=== PATIENT | female | born 1990 | race Caucasian/White ===

== ENCOUNTER 2018-09-17 22:20 | Inpatient (IN) | payer BC ==
[2018-09-17 22:48] VITALS: BMI 30.2
[2018-09-17] MEDS ORDERED: Ondansetron ODT 8 MG TAB SL PRN (23:08)
[2018-09-17] MEDS ORDERED: Morphine 10 MG/ML VIAL IM PRN (23:08)
[2018-09-18] MEDS ORDERED: Promethazine HCl 25 MG/ML VIAL IM PRN ×2 (00:34→01:46)
[2018-09-18] MEDS ORDERED: Ondansetron PF 4 MG/2 ML Vial IVP PRN ×2 (00:34→01:46)
[2018-09-18] MEDS ORDERED: Acetaminophen 500 MG TAB PO PRN (00:34)
[2018-09-18] MEDS ORDERED: Docusate 100 MG CAP PO PRN (00:34)
[2018-09-18] MEDS ORDERED: Lactated Ringer's 1,000 ML IV SCH (00:45)
[2018-09-18 00:56] LABS: Hemoglobin 13.9 g/dL (12.0-16.0); Mean Corpuscular HGB CONC 35.3 g/dL (32.0-36.0); Mean Corpuscular Hemoglobin 32.3 pg (27.0-31.0); Mean Corpuscular Volume 91.5 fL (78.0-98.0); Mean Platelet Volume 9.8 fL (7.4-10.4); Platelet Count 112 thou/uL (130-400); RBC Distribution Width 12.3 % (11.5-14.5); Red Blood Cell (RBC) Count 4.31 mill/uL (4.20-5.40); White Blood Cell (WBC) Count 15.2 thou/uL (4.8-10.8)
[2018-09-18] MEDS ORDERED: Fentanyl 4 mcg/Bup 0.1% Cadd 100 ML ONE ×4 (01:06→21:36)
[2018-09-18] MEDS: Lactated Ringer's 1,000 ML IV SCH ×3 (01:20→14:50)
[2018-09-18] MEDS: Fentanyl 4 mcg/Bupivacaine 0.1% Cassette 100 ML EPIDURAL SCH ×3 (01:33→21:36)
[2018-09-18 01:35] LABS: HBSAg Index 0.19 S/CO (0-0.99); Hep B Surf Ag Non-Reactive S/CO (NonReactive)
[2018-09-18] MEDS ORDERED: Lactated Ringer's 500 ML IV PRN (01:46)
[2018-09-18] MEDS ORDERED: Naloxone HCl 0.4 mg/ml Vial IVP PRN ×2 (01:46)
[2018-09-18] MEDS ORDERED: diphenhydrAMINE 50 MG/ML VIAL IVP PRN (01:46)
[2018-09-18] MEDS ORDERED: ePHEDrine/0.9% NaCl/PF SYRINGE 50 mg/10 ml SLOW IVP PRN (01:46)
[2018-09-18] MEDS ORDERED: Eucerin (Mineral Oil/Petrolatum,White) 30 gm Jar TOP PRN (01:46)
[2018-09-18] MEDS ORDERED: Acetaminophen 325 MG TAB PO PRN (01:46)
[2018-09-18] MEDS ORDERED: Communication Order-Pharmacy FS SCH (02:00)
[2018-09-18 05:52] LABS: Syphilis Antibody Nonreactive (Nonreactive); Syphilis Antibody Index 0.04 S/CO (<1.00 Non-Reactive)
--- NOTE | 2018-09-18 07:51 | PRG ---
DATE OF SERVICE: 09/17/2018 PRIMARY OB: Carmenza Avila MD CHIEF COMPLAINT: Abdominal pain. HISTORY OF PRESENT ILLNESS: The patient is a 28-year-old G1, P0 female with an intrauterine at 40 weeks and a day, who is presenting to Labor and Delivery with uterine contractions that have picked up from yesterday evening and becoming more intense and difficult to breathe through. The patient denies any leakage of fluid or vaginal bleeding. She denies any fall, headache, chest pain, shortness of breath, nausea, vomiting, diarrhea, or constipation. She denies any skin rashes, hip problems, knee problems, vaginal bleeding, leakage of fluid, or urinary urgency. PAST MEDICAL HISTORY: Negative. PAST SURGICAL HISTORY: Negative. ALLERGIES: NO KNOWN DRUG ALLERGIES. MEDICATIONS: vitamins. SOCIAL HISTORY: Denies drug, alcohol, or tobacco use. LABORATORY DATA: OB labs are unavailable at time of dictation. REVIEW OF SYSTEMS: Per HPI. PHYSICAL EXAMINATION: VITAL SIGNS: Blood pressure 119/75, heart rate of 94, respiratory rate 18, saturating on room air, temperature 98.4. GENERAL: The patient appears to be in some distress with her contractions, difficulty breathing through and concentrating. HEAD: Normocephalic, atraumatic. LUNGS: Clear to auscultation bilaterally. HEART: Regular rate and rhythm. ABDOMEN: Soft and gravid and nontender in between contractions. EXTREMITIES: Nontender with minimal bilateral edema. CERVICAL: Per nursing staff, it is documented as 2, 70, -2 station. heart tracing was performed for abdominal pain and . Baseline is noted to be in the 120s with moderate long-term variability, positive 15 x 15 accelerations, no deceleration. Contractions appear to be ASSESSMENT AND PLAN: The patient is a 28-year-old G1, P0 female with an intrauterine at 40 weeks and a day who has been getting increased intensity of uterine contractions this evening. The patient has made some marginal change after her doctor's office visit on Tuesday, at which time she was 1 cm dilated. The patient desires to go walking for a couple of hours and is asked to return for a repeat cervical exam. The patient has also been offered pain medication to help if she has been unable to tolerate her discomfort. If the patient has no change in 2 hours and if we get the patient comfortable with IM medication, the patient will be discharged to home. Otherwise, the patient will stay for pain control or for labor. Fetus has a reactive NST and category 1 tracing. Job ID: [id number]
[2018-09-18] MEDS ORDERED: Heparin 5,000 UNITS/ML VIAL SC SCH (09:00)
--- NOTE | 2018-09-18 13:02 | PDOC.LDPN ---
Labor & Delivery Progress Note - Subjective Subjective: comfortable - Objective Vital signs reviewed and normal: yes General: NAD Uterine fundus: non tender Dilation: 6 Effacement: 90% Station: -1 FHT: category 2 (rare late decels, otherwise mod btbv and accels) [place] contractions every: 4-5min Plan: continue plan of care (pitocin if SVE unchanged.)
[2018-09-18] MEDS ORDERED: NS w/ Oxytocin 10 units 500 ML IV SCH (14:30)
[2018-09-18] MEDS ORDERED: NS / Oxytocin 40 units/1000ml 1,000 ML ONE ×2 (18:31→23:39)
[2018-09-18] MEDS ORDERED: Acetaminophen 500 MG TAB PO SCH (20:00)
[2018-09-18] MEDS ORDERED: Gentamicin Sulfate 300 MG in Sodium Chloride 0.9% 100 ML IVPB SCH (21:00)
[2018-09-18] MEDS ORDERED: Ampicillin 2 GM in Sodium Chloride 0.9% 100 ML IVPB SCH (21:00)
[2018-09-18] MEDS ORDERED: Lidocaine 1% (PF) 30 ML VIAL ONE (22:47)
[2018-09-18 23:13] LABS: Actual Bicarbonate (HCO3a) 20.8 mEq/L (22-28); Actual Bicarbonate (HCO3v) 20 mEq/L (22-28); Base Excess (BEa) -8.7 mEq/L (-2.0 to +3.0); pH (Cord, venous) 7.27 (7.32-7.43)
--- NOTE | 2018-09-18 23:28 | PDOC.OPDEL ---
OB Operative/Delivery Note Delivery Dr/Surgeon: [place] Assist: n/a Pre-Delivery Diagnosis: active labor Procedure/Post Delivery Dx: spontaneous vaginal delivery (shoulder dystocia, 4th degree perineal lac) Weeks gestation: 40 Anesthesia: epidural - Findings A Sex: female Weight: 8 lb 3 oz - 1 min: 4 - 5 min: 7 (10min 9) - Additional Findings/Plan Placenta delivered: spontaneous Repaired Obstetrical Laceration: 4th degree (approx 3cm long 3cm wide, rectal mucosa repaired with 3-0 vicryl in subcuticular fashion, internal anal sphincter repaired with 2-0 vicryl in usual fashion, external anal sphincter repaired with 2-0 vicryl in end to end fashion figure of eight sutures, bilateral sulcus tears repaired with 2-0 vicryl running locking fashion incorporating underlying tissue to close space and second degree repaired with 2-0 vicryl in usual fashion with excellent hemostasis noted.) Estimated blood loss: 385cc qbl Compilations/Other Findings: Pt had protracted labor course but continually made change, was diagnosed with chorio upon being called 10cm and started on amp and gent. Pt started pushing and was +3 station OA presentation less than an hour of commencing pushing with good maternal effort. Upon of the head turtle sign was noted, baby restituted with anterior shoulder being the right shoulder. With gentle downward traction the anterior shoulder was noted to be impacted and Temitope and suprapubic was given by RNs. This was ineffective after about 15 seconds and help was called for. Winkler corkscrew maneuvar was attempted and too much pressure on anterior shoulder prohibited fetus from rotating to oblique. Posterior arm was reached for however arm was in such a position that the hand was wrapped around the back side of the baby and difficult to reach without causing fracture. Additional help gave more suprapubic and Temitope that was more effective then allowed the anterior shoulder to pop underneath the pubic bone with gentle traction. Baby was delivered, cord clamped, rowan called for and taken to warmer where rowan was available to assess. Total time on perineum approximately 1 min. See above for repair of laceration. Post delivery plan: routine recovery
[2018-09-19] MEDS ORDERED: Bisacodyl 10 MG SUPP PR PRN (00:54)
[2018-09-19] MEDS ORDERED: Preparation H Ointment 28 GM TUBE PR PRN (00:54)
[2018-09-19] MEDS ORDERED: Adacel (T-DAP) 0.5 ML SYRINGE IM ONE (00:54)
[2018-09-19] MEDS ORDERED: Ondansetron PF 4 MG/2 ML Vial IVP PRN (00:54)
[2018-09-19] MEDS ORDERED: Lanolin Ointment 7 GM TUBE TOP PRN (00:54)
[2018-09-19] MEDS ORDERED: Benzocaine/Menthol 20-0.5% 60 ML CAN TOP PRN (00:54)
[2018-09-19] MEDS ORDERED: HYDROcodone/Acetaminophen 5/325 mg Tablet PO PRN (00:54)
[2018-09-19] MEDS ORDERED: NS / Oxytocin 40 units/1000ml 1,000 ML IV SCH (00:54)
[2018-09-19] MEDS ORDERED: diphenhydrAMINE 25 MG CAP PO PRN (00:54)
[2018-09-19] MEDS: Ibuprofen 800 MG TAB PO SCH ×3 (03:28→22:02)
[2018-09-19] MEDS: Lactated Ringer's 1,000 ML IV SCH (06:41)
[2018-09-19] MEDS: HYDROcodone/Acetaminophen 5/325 mg Tablet PO PRN ×2 (08:12→12:25)
[2018-09-19] MEDS: Ferrous Sulfate 325 MG TAB PO SCH ×2 (09:48→17:08)
[2018-09-19] MEDS: Prenatal Vitamin 1 TAB PO SCH (10:11)
[2018-09-19] MEDS: Milk Of Magnesia 30 ML UDCUP PO PRN (10:11)
[2018-09-19] MEDS: Docusate Calcium (SURFAK) 240 MG CAP PO SCH ×2 (10:11→22:02)
--- NOTE | 2018-09-19 14:54 | PDOC.PP ---
Post Progress Note Post Day #: 1 PO intake tolerated: yes Flatus: yes Ambulation: yes Vital Signs (12 hours) Temp Pulse Resp BP Pulse Ox 09/19/18 12:20 98.1 F 71 16 94/56 L 95 09/19/18 08:01 98.1 F 69 20 100/58 L 95 09/19/18 08:00 95 09/19/18 03:30 74 20 102/58 L 97 Weight Weight 165 lb - Physical Examination General: NAD Respiratory: non-labored breathing Abdominal: no distention, appropriately TTP Fundus firm & at: umb Skin: no rash Neurological: no gross focal deficits Psychiatric: normal affect Result Diagrams: 09/18/18 00:40 Additional Labs: Post Labs Blood Type A POSITIVE 09/18/18 00:40 Hep Bs Antigen Non-Reactive S/CO (NonReactive) 09/18/18 00:40 - Assessment/Plan PPD1 s/p TSVD c/b shoulder dystocia and 4th degree perineal lac VSSAF Doing well pain controlled Cont michi care for 4th degree along with low residue diet and stool softner. will need BM prior to DC. s/p LC Rh pos RImm Cont PP care.
[2018-09-20] MEDS: Ibuprofen 800 MG TAB PO SCH ×3 (06:37→21:01)
[2018-09-20] MEDS: Ferrous Sulfate 325 MG TAB PO SCH ×2 (08:25→16:49)
[2018-09-20] MEDS: Docusate Calcium (SURFAK) 240 MG CAP PO SCH ×2 (09:12→21:01)
[2018-09-20] MEDS: Prenatal Vitamin 1 TAB PO SCH (09:12)
[2018-09-20] MEDS: Milk Of Magnesia 30 ML UDCUP PO PRN (09:12)
[2018-09-20] MEDS ORDERED: Milk Of Magnesia 30 ML UDCUP PO SCH (16:15)
--- NOTE | 2018-09-20 16:25 | PDOC.PP ---
Post Progress Note Post Day #: 2 PO intake tolerated: yes Flatus: yes Ambulation: yes Vital Signs (12 hours) Temp Pulse Resp BP Pulse Ox 09/20/18 12:06 98.3 F 79 20 102/57 L 09/20/18 08:08 98.4 F 74 20 112/61 100 09/20/18 07:45 100 Weight Weight 165 lb - Physical Examination General: NAD Respiratory: non-labored breathing Abdominal: appropriately TTP Fundus firm & at: umb-2 Neurological: no gross focal deficits Psychiatric: normal affect Result Diagrams: 09/18/18 00:40 Additional Labs: Post Labs Blood Type A POSITIVE 09/18/18 00:40 Hep Bs Antigen Non-Reactive S/CO (NonReactive) 09/18/18 00:40 - Assessment/Plan PPD2 s/p TSVD c/b shoulder dystocia and 4th degree lac VSSAF Doing well, pending bowel mvmt prior to DC. On stool softners and daily milk of mag. Pain controlled on ibuprofen, doing sitz baths. Discussed home care for fourth degree laceration, risks and complications associated with 4th degree lac and what to watch for at home. All questions answered. Rh pos RImm DC home once bowel mvmt. Ok to redose milk of mag now, incr hydration and ambulation. FU 2 wk
[2018-09-20 21:21] VITALS: BP 125/73; TEMP 98.1
== END 2018-09-20 21:07 | disposition home or self-care (01) | DRG 768 ==
LOC: L&D/OP 22:20 → L&D 09-18 00:45 → 3SW 09-19 01:21
PROVIDERS: ADMIT Student in an Organized Health Care Education/Training Program; ATTEND Student in an Organized Health Care Education/Training Program
PROC: 10E0XZZ Delivery of Products of Conception, External Approach (ICD-10-PCS; principal; 2018-09-18)
PROC: 0DQP0ZZ Repair Rectum, Open Approach (ICD-10-PCS; 2018-09-18)
DX: O66.0 Obstructed labor due to shoulder dystocia (principal); O41.1230 Chorioamnionitis, third trimester, not applicable or unspecified; O70.3 Fourth degree perineal laceration during delivery; Z37.0 Single live birth; Z3A.40 40 weeks gestation of pregnancy
CPT/HCPCS: 51702; 82805; 85027; 86780; 86850; 86900; 86901; 87340; 99285; J0290; J1580; J2001; J2270; J2405; J7050

== ENCOUNTER 2020-10-28 12:05 | Outpatient (CLI) | payer BC ==
--- NOTE | 2020-10-28 13:18 | RAD ---
RIGHT TIBIA AND FIBULA 2 VIEWS: HISTORY: Right leg pain. FINDINGS: No osseous abnormality. Knee and ankle appear unremarkable as visualized. IMPRESSION: Negative exam. POS: AH
--- NOTE | 2020-10-28 13:19 | RAD ---
LEFT TIBIA AND FIBULA 2 VIEWS: HISTORY: Left lower extremity pain. FINDINGS: No osseous abnormality. The visualized knee and ankle appear unremarkable. IMPRESSION: Negative exam. POS: AH
== END 2020-10-28 12:06 | disposition home or self-care (01) ==
LOC: SCSRAD 12:05
PROVIDERS: ATTEND Family Medicine
DX: M79.604 Pain in right leg (principal); M79.605 Pain in left leg